=== PATIENT | male | born 1995 | race Caucasian/White ===

== ENCOUNTER 2018-12-12 22:59 | Emergency (ER) | payer OTHER ==
[2018-12-13 01:30] LABS: ABS Basophils 0 10^3/ul (0-0.2); ABS Eosinophils 0.2 10^3/ul (0-0.6); ABS Lymphocytes 3.3 10^3/ul (1.0-4.8); ABS Monocytes 0.5 10^3/ul (0-0.8); ABS Neutrophils 4.6 10^3/ul (1.5-7.7); ABS Nucleated RBC 0 10^3/ul; Eosinophil % 1.8 %; Hematocrit 46 % (36-46); Hemoglobin 15.1 g/dL (14.0-18.0); Lymphocyte % 38.3 %; Mean Corpuscular HGB Conc 33 g/dL (31-36); Mean Corpuscular Hemoglobin 27 pg (27-31); Mean Corpuscular Volume 83 fL (80-94); Mean Platelet Volume 8.9 fL (7.4-10.4); Nucleated Red Blood Cells % 0.1; Platelet Count 159 10^3/uL (150-450); Red Blood Count 5.52 10^6 /uL (4.18-5.48); Red Cell Distribution Width 13 % (10.5-15); White Blood Count 8.6 10^3/uL (3.5-10.8)
[2018-12-13 01:47] LABS: Albumin 4.7 g/dL (3.2-5.2); BUN/Creatinine Ratio 18.4 (8-20); Calcium 9.4 mg/dL (8.6-10.3); EGFR African American 97.2 (>60); EGFR Non-African American 80.3 (>60); Globulin 2.3 g/dL (2-4); Magnesium 2.1 mg/dL (1.9-2.7); Total Bilirubin 1.6 mg/dL (0.2-1.0)
[2018-12-13 01:48] LABS: Troponin I 0.01 ng/mL (<0.04)
[2018-12-13 02:41] VITALS: BP 119/75
--- NOTE | 2018-12-13 02:44 | ED ---
Syncope/Near Syncope - HPI Summary HPI Summary: 23-year-old male presents with syncopal episode today. He states that she felt dizzy and then passed out in his kitchen and struck his head on the counter. He was out for a couple seconds. He states that he felt nauseous and had blurry vision afterwards. He denies any vomiting. He states he is having photophobia and difficulties concentrating. He says has side of neck pain. No other injury. Denies any history of syncope. No family history of syncope or cardiac issues. Denies any chest pressures or shortness of breath. No dizziness currently. - History Of Current Complaint Chief Complaint: EDHeadInjury Time Seen by Provider: 12/13/18 01:04 - Allergies/Home Medications Allergies/Adverse Reactions: Allergies Allergy/AdvReac Type Severity Reaction Status Date / Time No Known Allergies Allergy Verified 07/24/15 16:45 PMH/Surg Hx/FS Hx/Imm Hx Endocrine/Hematology History: Denies: Hx Anticoagulant Therapy Respiratory History: Denies: Hx Asthma Infectious Disease History: No Infectious Disease History: Reports: Traveled Outside the [place] in Last 30 Days - [place], [place] - Family History Known Family History: Negative: Seizure Disorder - Social History Alcohol Use: Rare Substance Use Type: Reports: None Smoking Status (MU): Never Smoked Tobacco Review of Systems Negative: Fever Negative: Chest Pain Negative: Shortness Of Breath Positive: Nausea. Negative: Vomiting Positive: Headache, Syncope All Other Systems Reviewed And Are Negative: Yes Physical Exam Triage Information Reviewed: Yes Vital Signs On Initial Exam: Initial Vitals Temp Pulse Resp BP Pulse Ox 97.8 F 60 16 157/101 98 12/12/18 23:04 12/12/18 23:04 12/12/18 23:04 12/12/18 23:04 12/12/18 23:04 Vital Signs Reviewed: Yes Appearance: Positive: Well-Appearing Skin: Positive: Warm, Dry Head/Face: Positive: Normal Head/Face Inspection Eyes: Positive: Normal, EOMI, JOMAR, Conjunctiva Clear, Other: - Nystagmus present ENT: Positive: Normal ENT inspection, Pharynx normal, TMs normal Neck: Positive: Other: - full range of motion of neck. No midline tenderness Respiratory/Lung Sounds: Positive: Clear to Auscultation, Breath Sounds Present Cardiovascular: Positive: Normal, RRR Abdomen Description: Positive: Nontender, Soft Bowel Sounds: Positive: Present Musculoskeletal: Positive: Normal Neurological: Positive: Sensory/Motor Intact, Alert, Oriented to Person Place, Time, CN Intact II-III, Normal Gait, Finger to Nose - Slows to perform Psychiatric: Positive: Normal - Kin Coma Scale Best Eye Response: 4 - Spontaneous Best Motor Response: 6 - Obeys Commands Best Verbal Response: 5 - Oriented Coma Scale Total: 15 Diagnostics - Vital Signs Vital Signs Temp Pulse Resp BP Pulse Ox 12/13/18 02:40 0 F 56 20 119/75 98 12/12/18 23:04 97.8 F 60 16 157/101 98 - Laboratory Lab Results: Lab Results 12/13/18 12/13/18 12/13/18 Range/Units 01:23 01:23 01:23 WBC 8.6 (3.5-10.8) 10^3/uL RBC 5.52 H (4.18-5.48) 10^6 /uL Hgb 15.1 (14.0-18.0) g/dL Hct 46 (36-46) % MCV 83 (80-94) fL MCH 27 (27-31) pg MCHC 33 (31-36) g/dL RDW 13 (10.5-15) % Plt Count 159 (150-450) 10^3/uL MPV 8.9 (7.4-10.4) fL Neut % (Auto) 53.7 % Lymph % (Auto) 38.3 % [place] % (Auto) 5.8 % Eos % (Auto) 1.8 % Baso % (Auto) 0.4 % Absolute Neuts (auto) 4.6 (1.5-7.7) 10^3/ul Absolute Lymphs (auto) 3.3 (1.0-4.8) 10^3/ul Absolute Monos (auto) 0.5 (0-0.8) 10^3/ul Absolute Eos (auto) 0.2 (0-0.6) 10^3/ul Absolute Basos (auto) 0 (0-0.2) 10^3/ul Absolute Nucleated RBC 0 10^3/ul Nucleated RBC % 0.1 Sodium 139 (135-145) mmol/L Potassium 4.0 (3.5-5.0) mmol/L Chloride 105 (101-111) mmol/L Carbon Dioxide 29 (22-32) mmol/L Anion Gap 5 (2-11) mmol/L BUN 21 (6-24) mg/dL Creatinine 1.14 (0.67-1.17) mg/dL Est GFR ( Amer) 97.2 (>60) Est GFR (Non-Af Amer) 80.3 (>60) BUN/Creatinine Ratio 18.4 (8-20) Glucose 98 (70-100) mg/dL Lactic Acid 0.4 L (0.5-2.0) mmol/L Calcium 9.4 (8.6-10.3) mg/dL Magnesium 2.1 (1.9-2.7) mg/dL Total Bilirubin 1.60 H (0.2-1.0) mg/dL AST 15 (13-39) U/L ALT 10 (7-52) U/L Alkaline Phosphatase 50 (34-104) U/L Troponin I 0.01 (<0.04) ng/mL Total Protein 7.0 (6.4-8.9) g/dL Albumin 4.7 (3.2-5.2) g/dL Globulin 2.3 (2-4) g/dL Albumin/Globulin Ratio 2.0 (1-3) Result Diagrams: 12/13/18 01:23 12/13/18 01:23 Lab Statement: Any lab studies that have been ordered have been reviewed, and results considered in the medical decision making process. - CT brain CT Interpretation Completed By: Radiologist Summary of CT Findings: No acute finding - EKG No standard instances Cardiac Rate: Bradycardia Summary of EKG Findings: sinus bradycardia Course/Dx Course Of Treatment: 23-year-old male presents with syncopal episode today. He states that she felt dizzy and then passed out in his kitchen and struck his head on the counter. He was out for a couple seconds. He states that he felt nauseous and had blurry vision afterwards. He denies any vomiting. He states he is having photophobia and difficulties concentrating. He says has side of neck pain. No other injury. Denies any history of syncope. No family history of syncope or cardiac issues. Denies any chest pressures or shortness of breath. No dizziness currently. On exam has normal neuro exam but is slow to perform. With loss consciousness and slow neuro exam will get CT. CT brain normal. EKG shows sinus bradycardia. Laboratory tests without significant abnormality. Told to follow up with [facility]. Gave concussion precautions. Patient understands and agrees with plan. - Diagnoses Differential Diagnosis/HQI/PQRI: Positive: Hypoglycemia, Metabolic Reaction, Vasovagal Episode Provider Diagnoses: Syncope, Head injury Discharge - Sign-Out/Discharge Documenting (check all that apply): Patient Departure Patient Received Moderate/Deep Sedation with Procedure: No - Discharge Plan Condition: Good Disposition: HOME Patient Education Materials: Concussion (ED) Forms: *School Release, *Work Release Referrals: [facility] [, APPLICATION, OTHER] - Additional Instructions: Place ice on area as needed Take Tylenol or ibuprofen for headache every 6 hours Modify activities as tolerated Follow up with deb within 5 days Return to ED if develop any new or worsening symptoms - Billing Disposition and Condition Condition: GOOD Disposition: Home
== END 2018-12-13 02:40 | disposition home or self-care (01) ==
LOC: ED 22:59
DX: R55 Syncope and collapse (principal); S09.90XA Unspecified injury of head, initial encounter; W18.00XA Striking against unspecified object with subsequent fall, initial encounter; Y92.9 Unspecified place or not applicable; R42 Dizziness and giddiness; R11.0 Nausea
CPT/HCPCS: 36415; 70450; 80053; 83605; 83735; 84484; 85025; 93005; 99282